=== PATIENT | female | born 2000 | race Caucasian/White ===

== ENCOUNTER 2021-10-24 21:28 | Emergency (ER) | payer SELFPAY ==
[~2021-10-24] VITALS: Ht 162.6 cm; Wt 76.6 kg
[2021-10-24] MEDS ORDERED: SYNTHROID25 MCG PO (23:28)
--- NOTE | 2021-10-25 17:20 | EKG ---
[facility] [address] [facility] [place] [address] Signed Normal sinus rhythm RSR' or QR pattern in V1 suggests right ventricular conduction delay T wave abnormality, consider inferior ischemia Abnormal ECG No previous ECGs available Confirmed by DANNIELLE LOMAS MD ([id number]) on 10/25/2021 5:20:36 PM Electronically Signed By: DANNIELLE LOMAS MD 10/25/21 1720 PATIENT NAME: DOMINIC MCMAHON Electrocardiogram DATE OF : [birth year] PHYSICIAN: DANNIELLE LOMAS MD REPORT #: [id number] REPORT IS CONFIDENTIAL AND NOT TO BE RELEASED WITHOUT AUTHORIZATION
== END 2021-10-24 23:49 | disposition home or self-care (01) ==
LOC: ED 21:28
DX: E03.9 Hypothyroidism, unspecified (principal); R07.89 Other chest pain; Z20.822 Contact with and (suspected) exposure to COVID-19
CPT/HCPCS: 36415; 71045; 80053; 83735; 84443; 84484; 84703; 85025; 85379; 85610; 85651; 86140; 87502; 93005; 93010; 96374; 99285-25; J1885; U0003

== ENCOUNTER 2024-01-10 17:35 | Emergency (ER) | payer BC ==
[~2024-01-10] VITALS: Ht 162.6 cm; Wt 84.6 kg
[~2024-01-10 17:35] MED LIST: SYNTHROID25 MCG PO
[2024-01-10 17:52] LABS: BASOPHILS 0.4 % (0-2); EOSINOPHILS 0.8 % (0-6); HEMATOCRIT 42.5 % (35.0-50.0); HEMOGLOBIN 14.8 g/dL (12.0-18.0); MCH 28.7 (27-36); MCHC 34.8 g/dl (30-36); MCV 82.5 fl (81-99); MONOCYTES 8.9 % (0-12); NEUTROPHILS 64.9 % (39-80); PLATELET COUNT 351 K/uL (140-440); RBC 5.15 M/ul (4.3-5.7); RDW 13.8 (10.5-15.0)
[2024-01-10 18:17] LABS: ALBUMIN 4.1 g/dL (3.4-5.0); ALBUMIN/GLOBULIN RATIO 0.93 (1.1-2.4); ALKALINE PHOSPHATASE 91 U/L (46-116); ALT (SGPT) 42 U/L (14-59); ANION GAP 11.3 (7-21); AST (SGOT) 18 U/L (15-37); BILIRUBIN, TOTAL 0.3 ng/dL (0.2-1.0); BUN/CREATININE RATIO 10.84 (6.0-28.6); CARBON DIOXIDE 29 mmol/L (21-32); CHLORIDE 99 mmol/L (98-107); CREATININE, SERUM 0.83 mg/dL (0.55-1.02); GLOMERULAR FILTRATION RATE,EST 100 mL/min (>60); MAGNESIUM 1.6 mg/dL (1.8-2.4); POTASSIUM 3.3 mmol/L (3.5-5.1); PROTEIN, TOTAL 8.5 g/dL (6.4-8.2); TSH, 3RD GENERATION 3.561 uIU/mL (0.358-3.740); UREA NITROGEN 9 mg/dL (7-18)
[2024-01-10] MEDS ORDERED: METOPROLOL SUCC25 MG PO (18:57)
[2024-01-10 19:00] VITALS: BP 120/102
[2024-01-10] MEDS ORDERED: METOPROLOL SUCCINATE 25 MG TABCR PO ONE (19:00)
--- NOTE | 2024-01-11 11:26 | EKG ---
[facility] [address] [facility] [place] [address] Signed Sinus tachycardia Incomplete right bundle branch block Cannot rule out Inferior infarct , age undetermined Abnormal ECG When compared with ECG of 24-OCT-2021 21:41, No significant change was found Confirmed by LYN JUAREZ MD ([id number]) on 01/11/2024 11:26:42 AM Electronically Signed By: LYN JUAREZ 01/11/24 1126 PATIENT NAME: DOMINIC MCMAHON Electrocardiogram DATE OF : [birth year] PHYSICIAN: LYN JUAREZ REPORT #: [id number] REPORT IS CONFIDENTIAL AND NOT TO BE RELEASED WITHOUT AUTHORIZATION
== END 2024-01-10 19:00 | disposition home or self-care (01) ==
LOC: ED 17:35
PROVIDERS: Emergency Medicine
DX: R07.89 Other chest pain (principal)
CPT/HCPCS: 36415; 71045; 80053; 83735; 84443; 84484; 84703; 85025; 85379; 93005; 93010; 99285-25

== ENCOUNTER 2024-08-24 19:19 | Emergency (ER) | payer BC ==
[~2024-08-24] VITALS: Ht 162.6 cm; Wt 84.0 kg
[~2024-08-24 19:19] MED LIST changes: +METOPROLOL SUCC25 MG PO
[2024-08-24 21:00] LABS: BASOPHILS 0.4 % (0-2); EOSINOPHILS 1.2 % (0-6); HEMOGLOBIN 15.7 g/dL (12.0-18.0); LYMPHOCYTES 20.3 % (24-44); MCH 29.2 (27-36); MCHC 35.6 g/dl (30-36); MONOCYTES 7.7 % (0-12); NEUTROPHILS 70.4 % (39-80); PLATELET COUNT 416 K/uL (140-440); RBC 5.37 M/ul (4.3-5.7); RDW 13.9 (10.5-15.0)
[2024-08-24] MEDS ORDERED: LACTATED RINGER'S 1,000 ML IV ONE (21:00)
[2024-08-24] MEDS ORDERED: ondansetron HCL 4 MG/2 ML VIAL IV ONE (21:00)
[2024-08-24 21:15] LABS: BILIRUBIN, URINE NEGATIVE (negative); BLOOD/HGB, URINE TRACE-I (Negative); KETONE, URINE NEGATIVE (Negative); LEUK ESTERASE, URINE NEGATIVE (negative); NITRITE, URINE NEGATIVE (negative)
[2024-08-24 21:15] LABS: ALBUMIN 4.3 g/dL (3.4-5.0); ALBUMIN/GLOBULIN RATIO 0.98 (1.1-2.4); ANION GAP 13.5 (7-21); BILIRUBIN, TOTAL 0.2 mg/dL (0.2-1.0); BUN/CREATININE RATIO 10.66 (6.0-28.6); CALCIUM 9.8 mg/dL (8.5-10.1); CREATININE, SERUM 0.75 mg/dL (0.55-1.02); MAGNESIUM 1.8 mg/dL (1.8-2.4); POTASSIUM 3.5 mmol/L (3.5-5.1); PROTEIN, TOTAL 8.7 g/dL (6.4-8.2)
[2024-08-24 21:21] LABS: CASTS, URINE NONE SEEN \\lpf; CRYSTALS, URINE NONE SEEN (0-1+); WHITE BLOOD CELLS, URINE 0-1 /HPF (0-5)
[2024-08-24 21:22] LABS: BACTERIA, URINE RARE /hpf (negative); COLLECTION TYPE, URINE CLEAN CATCH; EPITHELIAL CELLS, URINE SQUAMOUS 3+ /lpf (0-1+); REFLEX CULTURE, URINE No (No)
[2024-08-24 21:39] LABS: CORONAVIRUS COVID-19 AG NEGATIVE (NEGATIVE); INFLUENZA A AG NEGATIVE (NEGATIVE); INFLUENZA B AG NEGATIVE (NEGATIVE)
[2024-08-24 22:34] VITALS: BP 126/92
--- NOTE | 2024-08-26 14:01 | EKG ---
[facility] [address] [facility] [place] [address] Signed Normal sinus rhythm Incomplete right bundle branch block Nonspecific T wave abnormality Abnormal ECG When compared with ECG of 10-JAN-2024 17:34, Vent. rate has decreased BY 45 BPM Confirmed by Rashel Page MD ([id number]) on 08/26/2024 2:01:18 PM Electronically Signed By: RASHEL PAGE MD 08/26/24 1401 PATIENT NAME: DOMINIC MCMAHON JERAMIE Electrocardiogram DATE OF : [birth year] PHYSICIAN: RASHEL PAGE MD REPORT #: [id number] REPORT IS CONFIDENTIAL AND NOT TO BE RELEASED WITHOUT AUTHORIZATION
== END 2024-08-24 22:35 | disposition home or self-care (01) ==
LOC: ED 19:19
PROVIDERS: Internal Medicine
DX: R55 Syncope and collapse (principal); E86.0 Dehydration; I10 Essential (primary) hypertension; Z79.899 Other long term (current) drug therapy
CPT/HCPCS: 36415; 80053; 81001; 83735; 84703; 85025; 93005; 93010; 96361; 96374; 99284-25; J2405; J7121